=== PATIENT | female | born 1995 | race African-American/Black ===

== ENCOUNTER 2020-06-27 16:52 | Emergency (ER) | payer OTHER ==
[~2020-06-27] VITALS: Ht 162.6 cm; Wt 94.0 kg
[2020-06-27 17:53] VITALS: BP 112/54
--- NOTE | 2020-06-27 18:06 | PHYS DOC ---
Past Medical History Past Medical History: Anxiety, Asthma (MICHELLE CLARK APRN) Past Surgical History: Appendectomy, Other (MICHELLE CLARK APRN) Smoking Status: Current Every Day Smoker Alcohol Use: Occasionally Drug Use: None (MICHELLE CLARK APRN) General Adult EDM: Chief Complaint: FOOT INJURY PAIN HPI: HPI: Patient is a 25 year old female who presents with states she tripped over her dog on this past Tuesday and her ankle and foot rolled inward and she heard a pop. She states she has been up and walking on the extremity and working. She states that it continues to swell. She states she is taken ibuprofen and used ice. She rates her pain a 10 out of 10 when she is up and walking on it but this time it is a 7 out of 10. She states she is not taking any pain medicine. She denies numbness or tingling, skin color change, skin temperature change. (MICHELLE CLARK APRN) Review of Systems: Review of Systems: Constitutional: Denies fever or chills. [] Eyes: Denies change in visual acuity. [] HENT: Denies nasal congestion or sore throat. [] Respiratory: Denies cough or shortness of breath. [] Cardiovascular: Denies chest pain. + Right ankle and foot 2-3+ edema. [] GI: Denies abdominal pain, nausea, vomiting, bloody stools or diarrhea. [] : Denies dysuria. [] Musculoskeletal: Denies back pain. +Right ankle and foot joint pain. [] Integument: Denies rash. [] Neurologic: Denies headache, focal weakness or sensory changes. [] Endocrine: Denies polyuria or polydipsia. [] Lymphatic: Denies swollen glands. [] Psychiatric: Denies depression or anxiety. [] (MICHELLE CLARK APRN) Heart Score: Risk Factors: Risk Factors: DM, Current or recent (<one month) smoker, HTN, HLP, family history of CAD, obesity. Risk Scores: Score 0 - 3: 2.5% MACE over next 6 weeks - Discharge Home Score 4 - 6: 20.3% MACE over next 6 weeks - Admit for Clinical Observation Score 7 - 10: 72.7% MACE over next 6 weeks - Early Invasive Strategies (MICHELLE CLARK APRN) Current Medications: Current Medications Medications (Trade) Dose Ordered Sig/Alem Start Time Stop Time Status Last Admin Dose Admin Acetaminophen/ Hydrocodone Bitart (Lortab 5/325) 1 tab 1X ONCE 06/27/20 18:30 06/27/20 18:31 (MICHELLE CLARK SENIOR ENERGY TRADER) Allergies: Allergies: Allergies Coded Allergies Type Severity Reaction Last Updated Verified No Known Drug Allergies 07/19/14 No (MICHELLE CLARK SENIOR ENERGY TRADER) Physical Exam: PE: Constitutional: Well developed, well nourished, no acute distress, non-toxic appearance. [] HENT: Normocephalic, atraumatic, bilateral external ears normal, oropharynx mois t, no oral exudates, nose normal. [] Eyes: PERRLA, EOMI, conjunctiva normal, no discharge. [] Neck: Normal range of motion, no tenderness, supple, no stridor. [] Cardiovascular:Heart rate regular rhythm, no murmur [] Lungs & Thorax: Bilateral breath sounds clear to auscultation [] Abdomen: Bowel sounds normal, soft, no tenderness, no masses, no pulsatile masses. [] Skin: Warm, dry, no erythema, no rash. [] Back: No tenderness, no CVA tenderness. [] Extremities: Right medial and lateral ankle and lateral foot tenderness, no cyanosis, no clubbing, ROM intact but limited due to pain and swelling, 3+ edema. [] Neurologic: Alert and oriented X 3, normal motor function, normal sensory function, no focal deficits noted. [] Psychologic: Affect normal, judgement normal, mood normal. [] ([facility] SENIOR ENERGY TRADER) Current Patient Data: Vital Signs: Vital Signs Date Time Temp Pulse Resp B/P (MAP) Pulse Ox O2 Delivery O2 Flow Rate FiO2 06/27/20 17:53 97.8 65 18 112/54 (73) 100 Room Air 97.8 ([facility] SENIOR ENERGY TRADER) EKG: EKG: [] ([facility] SENIOR ENERGY TRADER) Radiology/Procedures: Radiology/Procedures: [] Impression: [facility] [address] [place] [address] IMAGING REPORT Signed PATIENT: KALEB BOOTH ACCOUNT: [id number] : 1995 LOCATION: ER AGE: 25 SEX: F EXAM STATUS: REG ER ORD. PHYSICIAN: MICHELLE CLARK APRN REASON: rolled ankle inward PROCEDURE: ANKLE RIGHT 3V ANKLE RIGHT 3V, FOOT RIGHT 3V Clinical Indication: Reason: rolled ankle inward / Spl. Instructions: / History: Comparison: None. Ankle Findings: There is no acute fracture or dislocation. The bony appearance is normal for patient age and the alignment is normal. The ankle mortise is intact. There is no soft tissue swelling. Foot findings: There is no acute fracture or dislocation. The bony alignment is normal. Bipartite medial sesamoid. There is no soft tissue abnormality. IMPRESSION: No acute fracture. Electronically signed by: Aguila Spear MD (06/27/2020 7:27 PM) [facility] DICTATED and SIGNED BY: AGUILA SPEAR MD DATE: 06/27/20 [id number] (MICHELLE CLARK APRN) Course & Med Decision Making: Course & Med Decision Making Pertinent Labs and Imaging studies reviewed. (See chart for details) See HPI. Alert and oriented x4. Speaks in full complete sentences. Ambulatory with a steady gait. Pedal pulses strong present. Skin pink warm and dry. Cap refills less than 2 seconds. Full sensations intact. Ankle is 2-3+ swelling. There is tenderness to the lateral and medial ankle as well as the lateral foot. No bruising is seen or deformity. She does have intact range of motion of the ankle and can wiggle all of her toes but is painful. X-rays show no acute findings. Patient is placed in a walking boot. Patient to follow-up with orthopedic as referred. [] (MICHELLE CLARK APRN) Dragon Disclaimer: Stacey Disclaimer: This electronic medical record was generated, in whole or in part, using a voice recognition dictation system. (MICHELLE CLARK APRN) Departure Departure Impression: Primary Impression: Pain, joint, ankle and foot Qualified Codes: M25.579 - Pain in unspecified ankle and joints of unspecified foot Disposition: 01 DC HOME SELF CARE/HOMELESS Condition: STABLE Referrals: NO PCP (PCP) ALFONSO LOVE MD Patient Instructions: Ankle Sprain, Foot Sprain Additional Instructions: Follow-up with orthopedic I referred you to. Follow-up with primary care provider if needed. Use ice and elevation. Take medication as prescribed. Scripts Ibuprofen (IBUPROFEN) 600 Mg Tablet 600 MG PO PRN Q6HRS PRN for INFLAMMATION, #25 TAB Prov: MICHELLE CLARK APRN 06/27/20 Attending Signature Attending Signature I have reviewed the PA/INDUCTOR TESTER's note and plan of care. I was available for consultation as needed during the patient's visit in the emergency department. I agree with the clinical impression, plan, and disposition. (FIDELIA WELLS DO) MICHELLE CLARK APRN Jun 27, 2020 18:06 FIDELIA WELLS DO Jun 27, 2020 23:06
[2020-06-27] MEDS ORDERED: HYDROcodone/APAP 5/325MG 1 TAB TABLET PO ONE (18:30)
--- NOTE | 2020-06-27 19:30 | RAD ---
ANKLE RIGHT 3V, FOOT RIGHT 3V Clinical Indication: Reason: rolled ankle inward / Spl. Instructions: / History: Comparison: None. Ankle Findings: There is no acute fracture or dislocation. The bony appearance is normal for patient age and the alignment is normal. The ankle mortise is intact. There is no soft tissue swelling. Foot findings: There is no acute fracture or dislocation. The bony alignment is normal. Bipartite medial sesamoid. There is no soft tissue abnormality. IMPRESSION: No acute fracture. Electronically signed by: Aguila Spear MD (06/27/2020 7:27 PM) ANGELA
[2020-06-27] MEDS ORDERED: IBUP-1007 PO (19:42)
== END 2020-06-27 20:27 | disposition home or self-care (01) ==
LOC: ER 16:52
DX: M25.571 Pain in right ankle and joints of right foot (principal); M79.671 Pain in right foot; R60.0 Localized edema; F41.9 Anxiety disorder, unspecified; J45.909 Unspecified asthma, uncomplicated; F17.200 Nicotine dependence, unspecified, uncomplicated; Z90.89 Acquired absence of other organs
CPT/HCPCS: 73610; 73630; 99284

== ENCOUNTER 2021-06-17 10:42 | Emergency (ER) | payer SELFPAY ==
[~2021-06-17] VITALS: Ht 162.6 cm; Wt 71.8 kg
[~2021-06-17 10:42] MED LIST: IBUP-1007 PO
[2021-06-17 11:28] LABS: BILIRUBIN,URINE SMALL (NEG); CLARITY,URINE CLEAR; COLOR,URINE AMBER; NITRITE,URINE NEGATIVE (NEG); PH,URINE 5.5 (<5.0-8.0); PROTEIN,URINE 30 mg/dL (NEG-TRACE); UROBILINOGEN,URINE 0.2 mg/dL (0.2 mg/dL)
[2021-06-17 11:48] LABS: BACTERIA,URINE 0 /HPF (0-FEW); RBC,URINE 0 /HPF (0-2); WBC,URINE 0 /HPF (0-4)
[2021-06-17 11:59] LABS: BASO % 0 % (0-3); EOS % 1 % (0-3); HEMOGLOBIN 11.1 g/dL (12.0-15.5); LYMPH # 1.2 x10^3/uL (1.0-4.8); LYMPH % 17 % (24-48); MEAN CORPUSCULAR HEMOGLOBIN 29 pg (25-35); MEAN CORPUSCULAR HGB CONC 34 g/dL (31-37); MEAN CORPUSCULAR VOLUME 87 fL (79-100); MONO # 0.3 x10^3/uL (0.0-1.1); MONO % 5 % (0-9); NEUT # 5.2 x10^3/uL (1.8-7.7); NEUT % 77 % (31-73); PLATELET COUNT 180 x10^3/uL (140-400); RED BLOOD COUNT 3.81 x10^6/uL (3.50-5.40); RED CELL DISTRIBUTION WIDTH 13.6 % (11.5-14.5); WHITE BLOOD COUNT 6.8 x10^3/uL (4.0-11.0)
--- NOTE | 2021-06-17 12:04 | RAD ---
EXAM: Head CT without contrast. HISTORY: Seizure. TECHNIQUE: Computed tomographic images of the head were obtained without contrast. *One or more of the following individualized dose reduction techniques were utilized for this examina tion: 1. Automated exposure control. 2. Adjustment of the mA and/or kV according to patient size. 3. Use of iterative reconstruction technique. COMPARISON: None. FINDINGS: There is no acute or subacute extra-axial or intraparenchymal hemorrhage. There is no mass effect or midline shift. There is no hydrocephalus. The ruano-white matter differentiation pattern is intact. The visualized portions of the orbits, paranasal sinuses and mastoid air cells are unremarkable. No s uspicious calvarial lesion is seen. IMPRESSION: No acute intracranial findings. Electronically signed by: Torrie Osborne MD (06/17/2021 12:02 PM) [id number]
[2021-06-17 12:07] LABS: CALCIUM 8.6 mg/dL (8.5-10.1); CREATININE 0.8 mg/dL (0.6-1.0); GFR 106.6; POTASSIUM 3.8 mmol/L (3.5-5.1)
[2021-06-17 12:07] LABS: BARBITURATES NEG (NEG); BENZODIAZEPINES NEG (NEG); CANNABINOIDS POS (NEG); COCAINE NEG (NEG); METHADONE NEG (NEG); OPIATES NEG (NEG); PHENCYCLIDINE NEG (NEG)
[2021-06-17 12:09] LABS: AMPHETAMINE/METHAMPHETAMINE NEG (NEG)
[2021-06-17 12:13] LABS: ALBUMIN 3.7 g/dL (3.4-5.0); ALBUMIN/GLOBULIN RATIO 1.2 (1.0-1.7); TOTAL BILIRUBIN 0.5 mg/dL (0.2-1.0); TOTAL PROTEIN 6.8 g/dL (6.4-8.2)
--- NOTE | 2021-06-17 13:38 | PHYS DOC ---
Past Medical History Past Medical History: Anxiety, Asthma, Depression Past Surgical History: Appendectomy, Other Additional Past Surgical Histo: bladder scope Smoking Status: Never Smoker Alcohol Use: None Drug Use: None General Adult EDM: Chief Complaint: SEIZURE HPI: HPI: Patient is a 26-year-old female that presents today with a new onset of seizure. Patient states she was at work she had a fuzzy feeling and then does not remember any other time until she woke up. This was witnessed by her coworkers they states she had full body movement and was not responsive. Patient was not incontinent of urine or stool. Patient states that she was at [facility] for psychiatric issues last week she was discharged on Tuesday given a prescription for Seroquel which she started at [facility], she states that she did not get the prescription filled until yesterday because she did not have the funds to do so she states that she got it filled yesterday and did take a dose this morning. Patient has no history of seizure activity. Patient denies suicidal or homicidal ideations at this time. Review of Systems: Review of Systems: Constitutional: Denies fever or chills. [] Eyes: Denies change in visual acuity. [] HENT: Denies nasal congestion or sore throat. [] Respiratory: Denies cough or shortness of breath. [] Cardiovascular: Denies chest pain or edema. [] GI: Denies abdominal pain, nausea, vomiting, bloody stools or diarrhea. [] : Denies dysuria. [] Musculoskeletal: Denies back pain or joint pain. [] Integument: Denies rash. [] Neurologic: Seizure, headache Endocrine: Denies polyuria or polydipsia. [] Lymphatic: Denies swollen glands. [] Psychiatric: Denies depression or anxiety. [] Heart Score: C/O Chest Pain: N/A Risk Factors: Risk Factors: DM, Current or recent (<one month) smoker, HTN, HLP, family history of CAD, obesity. Risk Scores: Score 0 - 3: 2.5% MACE over next 6 weeks - Discharge Home Score 4 - 6: 20.3% MACE over next 6 weeks - Admit for Clinical Observation Score 7 - 10: 72.7% MACE over next 6 weeks - Early Invasive Strategies Allergies: Allergies: Allergies Coded Allergies Type Severity Reaction Last Updated Verified Iodinated Contrast Media Allergy Intermediate rash, hives 06/17/21 Yes iodine Allergy Unknown rash, hives 06/17/21 Yes Physical Exam: PE: Constitutional: Well developed, well nourished, no acute distress, non-toxic appearance. [] HENT: Normocephalic, atraumatic, bilateral external ears normal, oropharynx moist, no oral exudates, nose normal. [] Eyes: PERRLA, EOMI, conjunctiva normal, no discharge. [] Neck: Normal range of motion, no tenderness, supple, no stridor. [] Cardiovascular:Heart rate regular rhythm, no murmur [] Lungs & Thorax: Bilateral breath sounds clear to auscultation [] Abdomen: Bowel sounds normal, soft, no tenderness, no masses, no pulsatile masses. [] Skin: Warm, dry, no erythema, no rash. [] Back: No tenderness, no CVA tenderness. [] Extremities: No tenderness, no cyanosis, no clubbing, ROM intact, no edema. [] Neurologic: Alert and oriented X 3, normal motor function, normal sensory function, no focal deficits noted, headache Psychologic: Affect normal, judgement normal, mood normal. [] Current Patient Data: Labs: Laboratory Tests Test 06/17/21 11:12 06/17/21 11:17 06/17/21 11:45 Urine Collection Type Unknown Urine Color Fanta Urine Clarity Clear Urine pH 5.5 (<5.0-8.0) Urine Specific Montfort >=1.030 (1.000-1.030) Urine Protein 30 mg/dL (NEG-TRACE) Urine Glucose (UA) Negative mg/dL (NEG) Urine Ketones (Stick) Trace mg/dL (NEG) Urine Blood Negative (NEG) Urine Nitrite Negative (NEG) Urine Bilirubin Small (NEG) Urine Urobilinogen Dipstick 0.2 mg/dL (0.2 mg/dL) Urine Leukocyte Esterase Negative (NEG) Urine RBC 0 /HPF (0-2) Urine WBC 0 /HPF (0-4) Urine Squamous Epithelial Cells Many /LPF Urine Bacteria 0 /HPF (0-FEW) Urine Mucus Marked /LPF Urine Opiates Screen Neg (NEG) Urine Methadone Screen Neg (NEG) Urine Barbiturates Neg (NEG) Urine Phencyclidine Screen Neg (NEG) Urine Amphetamine/Methamphetamine Neg (NEG) Urine Benzodiazepines Screen Neg (NEG) Urine Cocaine Screen Neg (NEG) Urine Cannabinoids Screen Pos (NEG) Urine Ethyl Alcohol Neg (NEG) POC Urine HCG, Qualitative Hcg negative (Negative) White Blood Count 6.8 x10^3/uL (4.0-11.0) Red Blood Count 3.81 x10^6/uL (3.50-5.40) Hemoglobin 11.1 g/dL (12.0-15.5) L Hematocrit 33.0 % (36.0-47.0) L Mean Corpuscular Volume 87 fL (79-100) Mean Corpuscular Hemoglobin 29 pg (25-35) Mean Corpuscular Hemoglobin Concent 34 g/dL (31-37) Red Cell Distribution Width 13.6 % (11.5-14.5) Platelet Count 180 x10^3/uL (140-400) Neutrophils (%) (Auto) 77 % (31-73) H Lymphocytes (%) (Auto) 17 % (24-48) L Monocytes (%) (Auto) 5 % (0-9) Eosinophils (%) (Auto) 1 % (0-3) Basophils (%) (Auto) 0 % (0-3) Neutrophils # (Auto) 5.2 x10^3/uL (1.8-7.7) Lymphocytes # (Auto) 1.2 x10^3/uL (1.0-4.8) Monocytes # (Auto) 0.3 x10^3/uL (0.0-1.1) Eosinophils # (Auto) 0.0 x10^3/uL (0.0-0.7) Basophils # (Auto) 0.0 x10^3/uL (0.0-0.2) Sodium Level 139 mmol/L (136-145) Potassium Level 3.8 mmol/L (3.5-5.1) Chloride Level 106 mmol/L (98-107) Carbon Dioxide Level 27 mmol/L (21-32) Anion Gap 6 (6-14) Blood Urea Nitrogen 17 mg/dL (7-20) Creatinine 0.8 mg/dL (0.6-1.0) Estimated GFR (Cockcroft-Gault) 106.6 BUN/Creatinine Ratio 21 (6-20) H Glucose Level 89 mg/dL (70-99) Calcium Level 8.6 mg/dL (8.5-10.1) Total Bilirubin 0.5 mg/dL (0.2-1.0) Aspartate Amino Transferase (AST) 19 U/L (15-37) Alanine Aminotransferase (ALT) 23 U/L (14-59) Alkaline Phosphatase 43 U/L (46-116) L Total Protein 6.8 g/dL (6.4-8.2) Albumin 3.7 g/dL (3.4-5.0) Albumin/Globulin Ratio 1.2 (1.0-1.7) Ethyl Alcohol Level < 10 mg/dL (0-10) Laboratory Tests 06/17/21 11:45 Laboratory Tests 06/17/21 11:45 Vital Signs: Vital Signs Date Time Temp Pulse Resp B/P (MAP) Pulse Ox O2 Delivery O2 Flow Rate FiO2 06/17/21 14:00 62 19 107/54 (71) 100 Room Air 06/17/21 13:30 74 12 103/54 (70) 100 Room Air 06/17/21 13:00 64 20 106/56 (73) 100 Room Air 06/17/21 12:30 63 25 108/62 (77) 100 Room Air 06/17/21 12:00 73 16 114/62 (79) 100 Room Air 06/17/21 11:30 74 23 111/43 (65) 100 Room Air 06/17/21 11:22 70 107/50 (69) 100 Room Air 06/17/21 10:53 97.7 83 20 112/69 (83) 100 Room Air 97.7 Vital Signs Date Time Temp Pulse Resp B/P (MAP) Pulse Ox O2 Delivery O2 Flow Rate FiO2 06/17/21 13:30 74 12 103/54 (70) 100 Room Air 06/17/21 10:53 97.7 97.7 EKG: EKG: [] Radiology/Procedures: Radiology/Procedures: REASON: seizure no hx PROCEDURE: CT HEAD WO CONTRAST EXAM: Head CT without contrast. HISTORY: Seizure. TECHNIQUE: Computed tomographic images of the head were obtained without contrast. *One or more of the following individualized dose reduction techniques were utilized for this examination: 1. Automated exposure control. 2. Adjustment of the mA and/or kV according to patient size. 3. Use of iterative reconstruction technique. COMPARISON: None. FINDINGS: There is no acute or subacute extra-axial or intraparenchymal hemorrhage. There is no mass effect or midline shift. There is no hydrocephalus. The ruano-white matter differentiation pattern is intact. The visualized portions of the orbits, paranasal sinuses and mastoid air cells are unremarkable. No suspicious calvarial lesion is seen. IMPRESSION: No acute intracranial findings. Electronically signed by: Torrie Osborne MD (06/17/2021 12:02 PM) [id number] [] Course & Med Decision Making: Course & Med Decision Making Pertinent Labs and Imaging studies reviewed. (See chart for details) [id number] patient labs and radiological studies were reviewed, no acute findings were noted, spoke with Dr. Mustafa on the phone he recommends outpatient evaluation by neurology with his office, stop the Seroquel, and advised patient not to drive for 6 months. 1400 spoke to patient at length regarding findings, patient will need to follow- up with outpatient neurology Dr. Mustafa for further evaluation of seizures, patient will need to stop her Seroquel follow-up with her referral psychiatric chris barcenas for medical management of her psychiatric concerns, patient was advised not to drive for 6 months due to seizure activity patient is agreeable with the above plan and she verbalizes understanding of the plan. Dragon Disclaimer: [email or web address] Disclaimer: This electronic medical record was generated, in whole or in part, using a voice recognition dictation system. Departure Departure Impression: Primary Impression: Seizures Disposition: 01 HOME / SELF CARE / HOMELESS Condition: STABLE Referrals: NO PCP (PCP) ETHAN STUBBS MD Patient Instructions: Seizure, Adult Additional Instructions: Follow-up with Dr. Mustafa, neurologist by phone and get the soonest appointment for evaluation of seizures Follow-up with your psychiatric provider for further medical management, stop the Seroquel Do not drive for 6 months due to the fact that you had a seizure Return to the emergency department for seizure activity, increased headache or pain, or for any suicidal homicidal ideations ZULY CARCAMO TEMPERING KILN TENDER Jun 17, 2021 13:38
[2021-06-17] MEDS ORDERED: ACETAMINOPHEN 500 MG TABLET PO ONE (13:45)
[2021-06-17 14:00] VITALS: BP 107/54
== END 2021-06-17 14:18 | disposition home or self-care (01) ==
LOC: ER 10:42
DX: R56.9 Unspecified convulsions (principal); J45.909 Unspecified asthma, uncomplicated; Z91.041 Radiographic dye allergy status; Z88.8 Allergy status to other drugs, medicaments and biological substances
CPT/HCPCS: 36415; 70450; 80053; 80307; 81001; 81025; 85025; 99285; G0480